=== PATIENT | female | born 1990 | race Two or more races ===

== ENCOUNTER 2024-05-19 11:44 | Emergency (ER) | payer OTHER ==
[~2024-05-19] VITALS: Ht 165.1 cm; Wt 81.1 kg
[2024-05-19 12:46] VITALS: BP 136/90; PULSE 88; RESP 16; TEMP 97.8; O2SAT 97
[2024-05-19] MEDS ORDERED: DOXY-286 PO (13:29)
== END 2024-05-19 13:57 | disposition home or self-care (01) ==
LOC: ER 11:44
DX: S61.412A Laceration without foreign body of left hand, initial encounter (principal); Z88.0 Allergy status to penicillin; W54.0XXA Bitten by dog, initial encounter; Y93.01 Activity, walking, marching and hiking; Y92.89 Other specified places as the place of occurrence of the external cause; Y99.8 Other external cause status
CPT/HCPCS: 12001